=== PATIENT | female | born 1995 | race Caucasian/White ===

== ENCOUNTER 2020-05-21 14:46 | Inpatient (IN) ==
[2020-05-21 11:40] LABS: Basophils # 0.1 K/mcL (0.0-0.2); Basophils % 0.3 %; Hematocrit 35.3 % (35.3-44.9); Hemoglobin 10.6 g/dL (11.5-15.4); Immature Granulocytes % 0.7 % (0-4); Lymphocytes % 4.2 %; Mean Corpuscular Hemoglobin 25.2 pg (28.0-33.3); Mean Platelet Volume 9.8 fL (9.4-12.4); Monocytes % 3.3 %; Neutrophils # 20.7 K/mcL (1.6-8.9); Platelet Count 374 K/mcL (140-400); Red Cell Distribution Width 15.1 % (11.5-14.5); Segmented Neutrophils % 91.5 %
[2020-05-21 11:41] LABS: Monocytes # 0.8 K/mcL (0.0-1.3); White Blood Count 22.6 K/mcL (4.3-11.1)
[2020-05-21 11:49] LABS: Amphetamine Screen,Urine Negative ng/mL (Cutoff=1000); Barbiturate Screen,Urine Negative ng/mL (Cutoff=200); Benzodiazepines Screen,Urine Negative ng/mL (Cutoff=200); Cannabinoid Screen,Urine Negative ng/mL (Cutoff = 50); Cocaine Screen,Urine Negative ng/mL (Cutoff= 300); Opiate Screen,Urine Negative ng/mL (Cutoff=300); Phencyclidine Screen,Urine Negative ng/mL (Cutoff=25)
[2020-05-21 12:27] LABS: Cord Venous Blood HCO3 14 mEq/L; Cord Venous Blood PCO2 47 mmHg (27-42); Cord Venous Blood PO2 < 17 mmHg (15-45)
[2020-05-21 13:15] LABS: Bilirubin,Urine Negative (Negative); Blood,Urine Negative (Negative); Clarity,Urine Clear (Clear); Color,Urine Yellow (Yellow); Glucose,Urine (UA) 500 mg/dL (Normal); Ketones,Urine >=160 mg/dL (Negative); Leukocyte Esterase,Urine Negative (Negative); Nitrite,Urine Negative (Negative); PH,Urine 5.5 pH Units (5.0-8.0); Protein,Urine Negative (Neg-Trace); Urobilinogen,Urine Normal (Normal)
[2020-05-21] MEDS: *HR* HYDROmorphone PF 0.5 MG/0.5 ML SYRINGE IVP PRN ×2 (13:18→14:13)
[2020-05-21 13:23] LABS: Mucus,Urine Few per lpf (None-Few); RBC,Urine 0-3 per hpf (0-3); WBC,Urine 0-3 per hpf (0-3)
[~2020-05-21 14:46] MED LIST: *HR* OxyCODONE Immed Rel 5 MG TABLET PO PRN; *HR* Oxytocin 10 UNIT/ML VIAL IM ONE; *HR* Promethazine 25 MG/ML VIAL IVP PRN; *HR* Propofol 200 MG/20 ML VIAL IVP ONE; *HR* Succinylcholine 200 MG/10 ML VIAL IVP ONE; Acetaminophen IV 1,000 MG/100 ML INFUS..BTL ONE; Azithromycin 500 MG in 0.9 % Sodium Chloride 250 ML IVPB ONE; Betamethasone Acet/SodPhos 30 MG/5 ML VIAL IM SCH; CeFAZolin 2,000 MG/50 ML BAG IVPB ONE; EPHEDrine 50 MG/ML VIAL ONE; Famotidine 20 MG/2 ML VIAL IVP PRN; Insulin LISPRO 300 UNITS/3 ML VIAL SQ ONE; Metoclopramide 10 MG/2 ML VIAL IVP PRN; Naloxone 0.4 MG/ML INJ IVP PRN; Ondansetron 4 MG/2 ML VIAL IVP ONE; Ondansetron 4 MG/2 ML VIAL IVP PRN; Ondansetron 4 MG/2 ML VIAL ONE; Ringers Solution, Lactated 1,000 ML IVC SCH; Ringers Solution, Lactated 1,000 ML ONE
[2020-05-21 15:14] LABS: Rubella IgG Antibody POSITIVE (POSITIVE)
[2020-05-21] MEDS ORDERED: Metoclopramide 10 MG/2 ML VIAL IVP PRN (15:32)
[2020-05-21] MEDS ORDERED: Oxytocin 20 units/ LR 1000 mL 20 UNIT/1,000 ML BAG IVC SCH (15:32)
[2020-05-21] MEDS ORDERED: Sennosides 8.6 MG TABLET PO PRN (15:32)
[2020-05-21] MEDS ORDERED: metroNIDAZOLE 500 MG TABLET PO SCH (15:32)
[2020-05-21] MEDS ORDERED: Ibuprofen 600 MG TABLET PO PRN (15:32)
[2020-05-21] MEDS ORDERED: Simethicone 80 MG TAB.CHEW PO PRN (15:32)
[2020-05-21] MEDS ORDERED: Dextrose Gel 15 GM/37.5 ML TUBE PO PRN ×2 (15:32)
[2020-05-21] MEDS ORDERED: 0.9 % Sodium Chloride 1,000 ML IVC SCH (15:32)
[2020-05-21] MEDS ORDERED: *HR* HYDROmorphone 20 MG/20 ML PCA IVC PRN (15:32)
[2020-05-21] MEDS ORDERED: *HR* OxyCODONE/APAP 5/325 TABLET PO PRN (15:32)
[2020-05-21] MEDS ORDERED: *HR* Dextrose 50 % in Water (Vial) 50 ML VIAL IVP PRN (15:32)
[2020-05-21] MEDS ORDERED: D5% in Water 1,000 ML IVC PRN (15:32)
[2020-05-21] MEDS ORDERED: Ondansetron 4 MG/2 ML VIAL IVP PRN (15:32)
[2020-05-21 15:33] LABS: Hepatitis C Virus Antibody Nonreactive (Nonreactive)
[2020-05-21 15:35] LABS: Hepatitis B Surface Antigen Nonreactive (Nonreactive)
[2020-05-21 15:50] LABS: HIV-1&2 Antibody & p24 Ag Nonreactive (Nonreactive)
[2020-05-21] MEDS ORDERED: Insulin LISPRO 300 UNITS/3 ML VIAL SQ SCH (16:30)
[2020-05-21 18:26] VITALS: BP 134/78
[2020-05-21] MEDS ORDERED: ceFAZolin 2,000 MG in 0.9 % Sodium Chloride 100 ML IVPB SCH (20:00)
[2020-05-21] MEDS ORDERED: Insulin DETEMIR 100 UNIT/ML X5UNITS SQ SCH (21:00)
[2020-05-22] MEDS ORDERED: Prenatal Vit/FA 1 EACH TABLET PO SCH (09:00)
== END 2020-05-21 18:55 | disposition home or self-care (01) | DRG 786 ==
LOC: 1NENULAB → 1NENUOBS 14:59
PROVIDERS: ADMIT Advanced Practice Midwife; ATTEND Advanced Practice Midwife

== ENCOUNTER → 2022-01-07 13:40 | Observation (INO) ==
[2022-01-07 12:22] LABS: Bacteria,Urine Few per hpf (None-Few); Bilirubin,Urine Negative (Negative); Blood,Urine Negative (Negative); Clarity,Urine Clear (Clear); Color,Urine Colorless (Yellow); Glucose,Urine (UA) >=1000 mg/dL (Normal); Ketones,Urine 40 mg/dL (Negative); Leukocyte Esterase,Urine Negative (Negative); Mucus,Urine Few per lpf (None-Few); Nitrite,Urine Negative (Negative); Protein,Urine Negative (Neg-Trace); RBC,Urine 0-3 per hpf (0-3); Specific Gravity,Urine > 1.030 (1.010-1.025); Squamous Epithelial Cell,Urine Few per hpf (None-Few); Urobilinogen,Urine Normal (Normal)
== END | disposition home or self-care (01) ==
LOC: 1NENULAB
PROVIDERS: ADMIT Obstetrics & Gynecology; ATTEND Obstetrics & Gynecology